=== PATIENT | female | born 1950 | race Caucasian/White ===

== ENCOUNTER → 2017-08-10 | Outpatient (CLI) | payer MEDICARE | LOC: COL.RAD 08:15 | DX: N28.89 Other specified disorders of kidney and ureter (principal); K80.80 Other cholelithiasis without obstruction ==

== ENCOUNTER → 2017-09-08 | Outpatient (CLI) | payer MEDICARE | LOC: COL.RAD 07:11 | DX: N28.89 Other specified disorders of kidney and ureter (principal); K80.20 Calculus of gallbladder without cholecystitis without obstruction; K76.0 Fatty (change of) liver, not elsewhere classified; N18.3 Chronic kidney disease, stage 3 (moderate) | CPT/HCPCS: A9585 ==

== ENCOUNTER 2017-10-01 08:50 | Inpatient (IN) | payer MEDICARE ==
[~2017-10-01] VITALS: Ht 157.5 cm; Wt 86.5 kg
[2017-10-14] VITALS (8 sets, daily range): BP systolic 108–156; BP diastolic 45–65; PULSE 58–63; TEMP 97.9–98
[2017-10-14] MEDS ORDERED: THE MEDICINE S200 M2 PO (15:01)
[2017-10-14] MEDS ORDERED: PRIL40 PO (15:02)
[2017-10-14] MEDS ORDERED: FOSAMAX 70MG TA70 MG PO (15:03)
[2017-10-14] MEDS ORDERED: PRINIVIL10 MG PO (15:03)
[2017-10-14] MEDS ORDERED: ZYRTEC 10MG10 MG PO (15:04)
[2017-10-15 03:45] VITALS: BP 105/41; PULSE 57; TEMP 98.1
[2017-10-15 07:15] LABS: BASO % 0.2 % (0.0-2.0); GRAN # 8.8 (1.4-6.5); GRAN % 88.1 % (42.2-75.2); HEMATOCRIT 38.4 % (37.0-47.0); HEMOGLOBIN 12.9 g/dl (12.5-16.0); LYMPH # 0.9 (1.2-3.4); LYMPH % 8.6 % (20.0-51.0); MEAN CELL VOLUME 90 fl (80.0-100.0); MEAN CORPUSCULAR HEMOGLOBIN 30 pg (27.0-31.0); MEAN CORPUSCULAR HGB CONC 34 g/dl (33.0-37.0); MEAN PLATELET VOLUME 10.2 fl (7.4-10.4); MONO # 0.3 (0.1-0.6); MONO % 2.7 % (1.7-9.3); PLATELET COUNT 198 K/mm3 (130-400); RED BLOOD COUNT 4.25 M/mm3 (4.10-5.30); REDCELL DISTRIBUTION WIDTH-CV 13.2 % (11.5-14.5)
[2017-10-15 07:28] LABS: CALCIUM 8.6 mg/dL (8.4-10.2); CREATININE, serum 0.94 mg/dL (0.52-1.25); POTASSIUM 4.3 mmol/L (3.4-5.0)
[2017-10-15 07:35] VITALS: BP 104/49; PULSE 57; TEMP 97.9
[2017-10-15 11:52] VITALS: BP 112/46; PULSE 55; TEMP 98.8
[2017-10-15 16:14] VITALS: BP 102/43; BP 123/82; PULSE 104; PULSE 59; TEMP 98.6; TEMP 99.1
[2017-10-15 20:06] VITALS: BP 145/49; PULSE 65; TEMP 99.1
[2017-10-16 01:14] VITALS: BP 106/43; PULSE 60; TEMP 98.5
[2017-10-16 04:56] VITALS: BP 114/47; PULSE 57; TEMP 99
[2017-10-16 08:35] VITALS: BP 110/46; PULSE 69; TEMP 98.1
[2017-10-16 11:40] VITALS: BP 129/55; PULSE 65; TEMP 98.6
== END 2017-10-16 13:48 | disposition home or self-care (01) | DRG 657 ==
LOC: INPTSU 10-14 13:04 → SURG 10-14 15:00
PROVIDERS: Surgery; Urology
PROC: 8E0W4CZ Robotic Assisted Procedure of Trunk Region, Percutaneous Endoscopic Approach (ICD-10-PCS; 2017-10-14)
PROC: 0TB04ZZ Excision of Right Kidney, Percutaneous Endoscopic Approach (ICD-10-PCS; principal; 2017-10-14 15:00)
PROC: 0FT44ZZ Resection of Gallbladder, Percutaneous Endoscopic Approach (ICD-10-PCS; 2017-10-14 15:00)
DX: D30.01 Benign neoplasm of right kidney (principal); K80.10 Calculus of gallbladder with chronic cholecystitis without obstruction; I12.9 Hypertensive chronic kidney disease with stage 1 through stage 4 chronic kidney disease, or unspecified chronic kidney disease; N18.3 Chronic kidney disease, stage 3 (moderate)
CPT/HCPCS: A4314; A9284; C1713; J1100; J1170; J1650; J2250; J2405; J2704; J2765; J2795; J3010; J7030; J7120

== ENCOUNTER → 2018-04-13 | Outpatient (CLI) | payer MEDICARE ==
[~2018-04-13] MED LIST: FOSAMAX 70MG TA70 MG PO; PRIL40 PO; PRINIVIL10 MG PO; THE MEDICINE S200 M2 PO; ZYRTEC 10MG10 MG PO
== END ==
LOC: COL.RAD 09:44
DX: Z01.812 Encounter for preprocedural laboratory examination (principal); N28.89 Other specified disorders of kidney and ureter; Z90.710 Acquired absence of both cervix and uterus; Z90.5 Acquired absence of kidney
CPT/HCPCS: Q9967

== ENCOUNTER → 2019-01-27 | Outpatient (CLI) | payer MEDICARE | LOC: COL.RAD 10:21 | DX: R93.421 Abnormal radiologic findings on diagnostic imaging of right kidney (principal); Z98.890 Other specified postprocedural states ==

== ENCOUNTER → 2019-02-18 | Outpatient (CLI) | payer MEDICARE | LOC: MC.RAD 11:53 | DX: Z12.31 Encounter for screening mammogram for malignant neoplasm of breast (principal) ==

== ENCOUNTER 2019-07-20 07:57 | Emergency (ER) | payer MEDICARE ==
[~2019-07-20] VITALS: Ht 157.5 cm; Wt 86.4 kg
[2019-07-20 08:09] VITALS: BP 143/67; TEMP 97.3
[2019-07-20] MEDS ORDERED: VOLTAREN GEL 1%1 TU TP (09:32)
[2019-07-20 09:56] VITALS: PULSE 75
== END 2019-07-20 09:50 | disposition home or self-care (01) ==
LOC: COL.ER 07:57
DX: S86.111A Strain of other muscle(s) and tendon(s) of posterior muscle group at lower leg level, right leg, initial encounter (principal); I10 Essential (primary) hypertension; Z90.710 Acquired absence of both cervix and uterus; Z90.5 Acquired absence of kidney; X58.XXXA Exposure to other specified factors, initial encounter

== ENCOUNTER → 2021-05-22 | Outpatient (CLI) | payer MEDICARE ==
[~2021-05-22] MED LIST changes: +VOLTAREN GEL 1%1 TU TP
== END ==
LOC: COL.RAD 11:55
DX: N28.89 Other specified disorders of kidney and ureter (principal)

== ENCOUNTER → 2021-09-20 | Outpatient (CLI) | payer MEDICARE | LOC: MC.RAD 09:29 | DX: Z12.31 Encounter for screening mammogram for malignant neoplasm of breast (principal) ==

== ENCOUNTER → 2023-06-02 | Outpatient (CLI) | payer MEDICARE | LOC: COL.RAD 10:15 | DX: N28.1 Cyst of kidney, acquired (principal); N26.1 Atrophy of kidney (terminal) ==

== ENCOUNTER → 2023-07-08 | Outpatient (CLI) | payer MEDICARE ==
[~2023-07-08] MED LIST changes: +OMNICEF 300MG300 MG PO; +PYRIDIUM 100MG100 MG PO
== END ==
LOC: MC.RAD 08:29
DX: Z12.31 Encounter for screening mammogram for malignant neoplasm of breast (principal)